=== PATIENT | female | born 1965 | race Caucasian/White ===

== ENCOUNTER 2019-09-10 06:01 | Day surgery (SDC) | payer OTHER ==
[~2019-09-10] VITALS: Ht 160 cm; Wt 78.9 kg
[~2019-09-10 06:01] MED LIST: ACET500C5 PO
[2019-09-10 06:34] VITALS: Ht 160 cm; Wt 78.9 kg
[2019-09-10 07:08] VITALS: BP 101/79; PULSE 57; RESP 25
[2019-09-10] MEDS ORDERED: PROPOFOL 40 ML ONE (07:59)
[2019-09-10 08:10] VITALS: BP 125/70; PULSE 56; RESP 20
[2019-09-10 08:15] VITALS: BP 125/73; PULSE 52; RESP 16
[2019-09-10 08:20] VITALS: BP 137/83; PULSE 50; RESP 16
== END 2019-09-10 14:32 | disposition home or self-care (01) ==
LOC: GIL 06:01
PROVIDERS: ATTEND Internal Medicine Gastroenterology
DX: K21.9 Gastro-esophageal reflux disease without esophagitis (principal); K44.9 Diaphragmatic hernia without obstruction or gangrene; K29.50 Unspecified chronic gastritis without bleeding
CPT/HCPCS: 88305; 88312